=== PATIENT | female | born 1995 | race Caucasian/White ===

== ENCOUNTER 2022-12-11 12:26 | Inpatient (IN) ==
[2022-12-11] MEDS ORDERED: Lactated Ringers 1000 ml BAG 1,000 ML IV ONE (14:26)
[2022-12-11] MEDS ORDERED: Buffered Lidocaine 1% SYRIN 1 ml INTRADERM ONE (14:26)
[2022-12-11] MEDS ORDERED: Lidocaine 1% VIAL 10 MG/ML 30 ML VIAL INJ PRN (14:26)
[2022-12-11] MEDS ORDERED: Lactated Ringers 1000 ml BAG 1,000 ML IV SCH ×2 (15:00→20:00)
[2022-12-11 15:14] LABS: ABS Lymphocytes 1.4 10^3/uL (1.0-4.8); ABS Monocytes 0.6 10^3/uL (0.0-0.9); ABS Neutrophils 7.7 10^3/uL (1.5-7.6); ABS Nucleated RBC 0.01 10^3/ul; Eosinophil % 0.5 %; Hematocrit 30.5 % (35-45); Hemoglobin 10.3 g/dL (11.5-14.3); Lymphocyte % 14.2 %; Mean Corpuscular Hemoglobin 26.9 pg (27-33); Mean Corpuscular Hgb Conc 33.8 g/dL (31-36); Mean Corpuscular Volume 79.4 fL (80-97); Mean Platelet Volume 9.1 fL (7.5-11.2); Nucleated Red Blood Cells % 0.1 /100 WBC (0.0-0.4); Platelet Count 194 10^3/uL (150-450); Red Blood Count 3.84 10^6/uL (3.63-4.92); Red Cell Distribution Width 14.6 % (12-17); White Blood Count 9.8 10^3/uL (3.8-11.8)
[2022-12-11 15:49] LABS: Urine Benzodiazepine Screen None Detected (None Detect); Urine Cannabinoids Screen None Detected (None Detect); Urine Opiates Screen None Detected (None Detect)
[2022-12-11] MEDS ORDERED: Glycerin ADULT 2.4 gm SUPP PR PRN (19:48)
[2022-12-11] MEDS ORDERED: Dibucaine 1% OINT 28.35 GM TUBE PR PRN (19:48)
[2022-12-11] MEDS ORDERED: Witch Hazel PAD JAR TOPICAL PRN (19:48)
[2022-12-12 06:57] LABS: ABS Eosinophils 0.1 10^3/uL (0.0-0.5); ABS Lymphocytes 2.6 10^3/uL (1.0-4.8); ABS Monocytes 1.2 10^3/uL (0.0-0.9); ABS Neutrophils 11.8 10^3/uL (1.5-7.6); ABS Nucleated RBC 0.01 10^3/ul; Eosinophil % 0.3 %; Hematocrit 26.8 % (35-45); Hemoglobin 9.1 g/dL (11.5-14.3); Lymphocyte % 16.6 %; Mean Corpuscular Hemoglobin 26.8 pg (27-33); Mean Corpuscular Hgb Conc 33.8 g/dL (31-36); Mean Corpuscular Volume 79.2 fL (80-97); Mean Platelet Volume 8.7 fL (7.5-11.2); Platelet Count 206 10^3/uL (150-450); Red Blood Count 3.39 10^6/uL (3.63-4.92); Red Cell Distribution Width 14.3 % (12-17); White Blood Count 15.7 10^3/uL (3.8-11.8)
[2022-12-13 08:35] VITALS: BP 113/56
== END 2022-12-13 10:49 | disposition home or self-care (01) | DRG 560 ==
LOC: MCHOBOUT 12:26 → MCHOB 14:20
PROVIDERS: ADMIT Advanced Practice Midwife; ATTEND Advanced Practice Midwife